=== PATIENT | male | born 1945 | race Caucasian/White ===

== ENCOUNTER 2020-06-29 17:20 | Emergency (ER) | payer BC, OTHER ==
[~2020-06-29] VITALS: Ht 165.1 cm; Wt 67.1 kg
[~2020-06-29 17:20] MED LIST: ASPI-1393 PO; GLIP5TAB13 PO; LISI20TA30 PO; METF1000 PO; SIMV-43 PO
[2020-06-29 17:40] VITALS: BP_SYST 151
[2020-06-29] MEDS ORDERED: HYDR-3919 PO (19:51)
[2020-06-29] MEDS ORDERED: IBUP-1971 PO (19:51)
[2020-06-29 19:58] VITALS: BP_SYST 142
== END 2020-06-29 19:58 | disposition home or self-care (01) ==
LOC: SED 17:20
DX: S43.492A Other sprain of left shoulder joint, initial encounter (principal); S00.03XA Contusion of scalp, initial encounter; I10 Essential (primary) hypertension; E11.9 Type 2 diabetes mellitus without complications; Z79.899 Other long term (current) drug therapy; W11.XXXA Fall on and from ladder, initial encounter; Y93.89 Activity, other specified; Y92.89 Other specified places as the place of occurrence of the external cause; Y99.8 Other external cause status
CPT/HCPCS: 70450-TC; 73030; 76376; 99284